=== PATIENT | female | born 1935 | race Caucasian/White ===

== ENCOUNTER 2016-08-11 06:50 | Inpatient (IN) | payer OTHER ==
[~2016-08-11] VITALS: Ht 160 cm; Wt 64.2 kg
[~2016-08-11 06:50] MED LIST: AMARYL2 MG PO; ASPIRIN325 MG PO; BIDIL1 TABLET PO; CALTRATE PLUS1 EACH PO; CENTRUM SILVER1 EAC3 PO; CINNAMON500 MG PO; DIGOX250 MCG PO; DIGOXIN250 MCG PO; DIOVAN80 MG PO; DYAZIDE, MA1 CAPSULE PO; FENOFIBRATE48 MG PO; FENOGLIDE40 MG PO; GLIMEPIRIDE2 MG PO; ISOSORBIDE DINI20 MG PO; JANUVIA100 MG PO; LYRICA150 MG PO; NEXIUM40 MG PO; PREDNISOLONE AC15 ML LEFT EYE; SERTRALINE HCL25 MG PO; SKELAXIN800 MG PO; TORADOL10 MG PO; TRIAMTERENE-HC1 EAC1 PO; TYLENOL REGULA325 MG PO; VITAMIN B-6100 MG PO
[2016-08-11 07:52] LABS: HEMATOCRIT 33.9 % (36.0-46.0); MCH 25.7 PG (29.0-34.0); MCHC 33.3 G/DL (30.0-36.0); MEAN PLAT.VOLUME 9.7 uM^3 (9.5-12.4); PLATELET COUNT 223 K/uL (156-360); RBC DIS.WIDTH-CV 13.2 % (11.8-14.6); RBC DIS.WIDTH-SD 36.9 % (39-53); WHITE BLOOD COUNT 17.2 K/uL (4.1-10.2)
[2016-08-11 08:11] LABS: CHLORIDE 101 mEq/L (99-109); POTASSIUM 5.2 mEq/L (3.7-5.4); SODIUM 132 mEq/L (136-147)
[2016-08-11 08:14] LABS: GLUCOSE 173 mg/dL (70-99)
[2016-08-11 08:15] LABS: ANION GAP 10 MEQ/L (2-14)
[2016-08-11 08:16] LABS: TOTAL BILIRUBIN 0.5 mg/dL (0.0-1.0)
[2016-08-11 08:17] LABS: ALKALINE PHOSPHATASE 40 IU/L (3-129); GFR ESTIMATE (CALCULATED) 51 mL/min/
[2016-08-11 08:19] LABS: UREA NITROGEN (BUN) 13 mg/dL (9-23)
[2016-08-11 08:21] LABS: LIPASE 423 U/L (1.0-51.0)
[2016-08-11 08:39] LABS: ABS NEUTROPHIL COUNT 15.9; BAND NEUTROPHILS 0.9 % (0-8.0); EOSINOPHIL ABS CT 0; INSTRUMENT ABS NEUTROPHIL CT 14.7 K/uL; LYMPHOCYTES 5.2 % (15.0-45.0); SEG.NEUTROPHILS 91.3 % (46.0-76.0)
[2016-08-11] MEDS ORDERED: LYRICA100 MG PO (11:04)
[2016-08-11] MEDS ORDERED: TRULICITY1.5 MG/0.5 SC (11:06)
[2016-08-11] MEDS ORDERED: LEVEMIR FL100 UNIT/1 SC (11:06)
[2016-08-11 13:01] VITALS: BP 142/67
[2016-08-11 13:23] LABS: ABSOLUTE RETICULOCYTE CT. 0.1 M/uL (0.02-0.08); IMM.RETIC FRACTION 10.2 % (3-19); RETIC HGB EQUIVALENT 26.7 (28-36); RETICULOCYTE COUNT 2.1 % (0.5-1.8)
[2016-08-11 14:51] LABS: IRON 19 MCG/DL (35-150)
[2016-08-11 16:10] VITALS: BP 127/71
[2016-08-11 17:15] LABS: FERRITIN 225 NG/ML (10-291)
[2016-08-11 17:24] LABS: POINT-OF-CARE METER ID UU14162508
[2016-08-11 19:27] VITALS: BP 140/65
[2016-08-12 03:41] VITALS: BP 145/64
[2016-08-12 07:23] VITALS: BP 169/73
[2016-08-12 07:57] LABS: EOSINOPHIL (%) 5.1 % (0-5); EOSINOPHIL COUNT 0.6 K/uL (0-0.3); HEMATOCRIT 31.5 % (36.0-46.0); IMMATURE GRANULOCYTE (%) 0.4 % (0.0-0.7); INSTRUMENT ABS NEUTROPHIL CT 7.2 K/uL; LYMPHOCYTE COUNT 2.3 K/uL (1.0-2.8); MCH 25.4 PG (29.0-34.0); MCHC 32.1 G/DL (30.0-36.0); MCV 79.1 FL (83-99); MEAN PLAT.VOLUME 10.6 uM^3 (9.5-12.4); MONOCYTE (%) 7.8 % (3-12); MONOCYTE COUNT 0.9 K/uL (0-0.8); NEUTROPHIL (%) 65.1 % (45-76); NEUTROPHIL COUNT 7.2 K/uL (1.8-6.4); PLATELET COUNT 214 K/uL (156-360); RBC DIS.WIDTH-CV 13.4 % (11.8-14.6); RBC DIS.WIDTH-SD 38.8 % (39-53); RED BLOOD COUNT 3.98 M/uL (3.80-5.20)
[2016-08-12 08:11] LABS: ANION GAP 8 MEQ/L (2-14); CHLORIDE 107 MEQ/L (99-109); GFR ESTIMATE (CALCULATED) > 59 mL/min/; SAMPLE HEMOLYSIS CHECK 0; SAMPLE ICTERIC CHECK 0; SAMPLE LIPEMIA CHECK 0; SODIUM 138 MEQ/L (136-147); UREA NITROGEN (BUN) 11 mg/dL (9-23)
[2016-08-12 08:15] LABS: GLUCOSE 89 mg/dL (70-99); POTASSIUM 3.8 MEQ/L (3.7-5.4)
[2016-08-12 11:37] VITALS: BP 156/70
[2016-08-12 15:19] VITALS: BP 162/74
[2016-08-12 20:31] VITALS: BP 170/68
[2016-08-13 00:33] VITALS: BP 139/61
[2016-08-13 05:04] VITALS: BP 162/66
[2016-08-13 06:28] LABS: HEMATOCRIT 31.4 % (36.0-46.0); MCH 25.8 PG (29.0-34.0); MCHC 33.4 G/DL (30.0-36.0); MCV 77.1 FL (83-99); MEAN PLAT.VOLUME 10.1 uM^3 (9.5-12.4); PLATELET COUNT 231 K/uL (156-360); RBC DIS.WIDTH-SD 36.8 % (39-53); RED BLOOD COUNT 4.07 M/uL (3.80-5.20)
[2016-08-13 06:51] LABS: ANION GAP 12 MEQ/L (2-14); CHLORIDE 104 MEQ/L (99-109); GFR ESTIMATE (CALCULATED) > 59 mL/min/; GLUCOSE 92 mg/dL (70-99); LIPASE 47 U/L (1.0-51.0); POTASSIUM 3.4 MEQ/L (3.7-5.4); SAMPLE HEMOLYSIS CHECK 0; SAMPLE ICTERIC CHECK 0; SAMPLE LIPEMIA CHECK 0; SODIUM 137 MEQ/L (136-147); UREA NITROGEN (BUN) 9 mg/dL (9-23)
[2016-08-13 07:25] VITALS: BP 163/74
[2016-08-13 11:44] VITALS: BP 169/70
[2016-08-13 15:49] VITALS: BP 176/92
[2016-08-13 16:20] LABS: POINT-OF-CARE METER ID UU14162508
[2016-08-14 00:10] VITALS: BP 147/64
[2016-08-14 04:48] LABS: HEMATOCRIT 32.7 % (36.0-46.0); MCH 25.6 PG (29.0-34.0); MCHC 33.9 G/DL (30.0-36.0); MCV 75.5 FL (83-99); MEAN PLAT.VOLUME 10.1 uM^3 (9.5-12.4); PLATELET COUNT 264 K/uL (156-360); RBC DIS.WIDTH-SD 35.7 % (39-53); RED BLOOD COUNT 4.33 M/uL (3.80-5.20); WHITE BLOOD COUNT 10.2 K/uL (4.1-10.2)
[2016-08-14 05:48] LABS: CHLORIDE 104 mEq/L (99-109); POTASSIUM 3.7 mEq/L (3.7-5.4); SODIUM 136 mEq/L (136-147)
[2016-08-14 05:51] LABS: ANION GAP 10 MEQ/L (2-14)
[2016-08-14 05:53] LABS: GFR ESTIMATE (CALCULATED) > 59 mL/min/; GLUCOSE 148 mg/dL (70-99)
[2016-08-14 05:54] LABS: UREA NITROGEN (BUN) 7 mg/dL (9-23)
[2016-08-14 07:21] VITALS: BP 173/62
[2016-08-14] MEDS ORDERED: OMNICEF300 MG PO (12:19)
[2016-08-14 12:31] LABS: POINT-OF-CARE METER ID UU14162508
== END 2016-08-14 13:30 | disposition home or self-care (01) | DRG 438 ==
LOC: EME → EDBD 06:50 → EME 06:50 → EDOF 10:46 → 2EAST 10:46
PROVIDERS: Emergency Medicine; Internal Medicine; Internal Medicine Gastroenterology
DX: K85.90 Acute pancreatitis without necrosis or infection, unspecified (principal); J18.9 Pneumonia, unspecified organism; Y93.01 Activity, walking, marching and hiking; I10 Essential (primary) hypertension; W19.XXXA Unspecified fall, initial encounter; E11.9 Type 2 diabetes mellitus without complications; E78.5 Hyperlipidemia, unspecified; K21.9 Gastro-esophageal reflux disease without esophagitis; R10.32 Left lower quadrant pain; Z79.4 Long term (current) use of insulin; Y92.009 Unspecified place in unspecified non-institutional (private) residence as the place of occurrence of the external cause; E87.1 Hypo-osmolality and hyponatremia; J90 Pleural effusion, not elsewhere classified; D64.9 Anemia, unspecified; D49.0 Neoplasm of unspecified behavior of digestive system; R53.1 Weakness; Z88.2 Allergy status to sulfonamides
CPT/HCPCS: 70450; 71010; 73502; 74177; 76705; 80048; 80053; 81003; 82607; 82728; 82746; 82948; 83540; 83605; 83690; 84466; 85025; 85027; 85045; 87040; 87070; 87205; 87449; 93005; 94799; 97530 GP; 99281; 99284; C9113; J0456; J0696; J1650; J1815; J7030; J7050

== ENCOUNTER 2016-11-11 09:04 | Inpatient (IN) | payer OTHER ==
[~2016-11-11] VITALS: Ht 157.5 cm; Wt 62.4 kg
[~2016-11-11 09:04] MED LIST changes: +LEVEMIR FL100 UNIT/1 SC; +LYRICA100 MG PO; +OMNICEF300 MG PO; +TRULICITY1.5 MG/0.5 SC
[2016-11-11] MEDS ORDERED: ACCUPRIL40 MG PO (10:01)
[2016-11-11] MEDS ORDERED: AMLODIPINE BESY10 MG PO (10:02)
[2016-11-11] MEDS ORDERED: AVODART0.5 MG PO (10:03)
[2016-11-11] MEDS ORDERED: LASIX40 MG PO (10:03)
[2016-11-11 10:05] LABS: HEMATOCRIT 41.9 % (36.0-46.0); MCH 25.4 PG (29.0-34.0); MCHC 32.5 G/DL (30.0-36.0); MCV 78.2 FL (83-99); MEAN PLAT.VOLUME 9.6 uM^3 (9.5-12.4); PLATELET COUNT 245 K/uL (156-360); RBC DIS.WIDTH-CV 14.3 % (11.8-14.6); RBC DIS.WIDTH-SD 39.9 % (39-53); RED BLOOD COUNT 5.36 M/uL (3.80-5.20)
[2016-11-11 10:17] LABS: CHLORIDE 103 mEq/L (99-109); POTASSIUM 4.1 mEq/L (3.7-5.4); SODIUM 140 mEq/L (136-147)
[2016-11-11 10:19] LABS: GLUCOSE 156 mg/dL (70-99)
[2016-11-11 10:21] LABS: ANION GAP 10 MEQ/L (2-14); TOTAL BILIRUBIN 0.5 mg/dL (0.0-1.0)
[2016-11-11 10:23] LABS: ALKALINE PHOSPHATASE 51 IU/L (3-129); GFR ESTIMATE (CALCULATED) > 59 mL/min/
[2016-11-11 10:24] LABS: UREA NITROGEN (BUN) 11 mg/dL (9-23)
[2016-11-11] MEDS ORDERED: MOBIC7.5 MG PO (14:39)
[2016-11-11] MEDS ORDERED: LEVEMIR FL100 UNIT/1 SC (14:39)
[2016-11-11 20:05] LABS: POINT-OF-CARE METER ID UU14100415
[2016-11-11 21:30] VITALS: BP 167/81
[2016-11-12] VITALS (7 sets, daily range): BP systolic 119–173; BP diastolic 62–80
[2016-11-12 06:14] LABS: HEMATOCRIT 32.6 % (36.0-46.0); MCH 26.3 PG (29.0-34.0); MCHC 32.8 G/DL (30.0-36.0); MCV 80.1 FL (83-99); MEAN PLAT.VOLUME 10.4 uM^3 (9.5-12.4); PLATELET COUNT 206 K/uL (156-360); RBC DIS.WIDTH-CV 14.5 % (11.8-14.6)
[2016-11-12 06:16] LABS: RED BLOOD COUNT 4.07 M/uL (3.80-5.20)
[2016-11-12 06:26] LABS: ANION GAP 6 MEQ/L (2-14); CHLORIDE 106 MEQ/L (99-109); GFR ESTIMATE (CALCULATED) 56 mL/min/; POTASSIUM 4.2 MEQ/L (3.7-5.4); SAMPLE HEMOLYSIS CHECK 0; SAMPLE ICTERIC CHECK 0; SAMPLE LIPEMIA CHECK 0; SODIUM 141 MEQ/L (136-147); UREA NITROGEN (BUN) 12 mg/dL (9-23)
[2016-11-12 06:35] LABS: GLUCOSE 74 mg/dL (70-99)
[2016-11-12 08:44] LABS: POINT-OF-CARE METER ID UU13113717
[2016-11-12 17:10] LABS: POINT-OF-CARE METER ID UU14188625
[2016-11-12 21:09] LABS: POINT-OF-CARE METER ID UU13113717
[2016-11-13 06:05] LABS: EOSINOPHIL (%) 5.2 % (0-5); EOSINOPHIL COUNT 0.5 K/uL (0-0.3); HEMATOCRIT 31.9 % (36.0-46.0); IMMATURE GRANULOCYTE (%) 0.3 % (0.0-0.7); LYMPHOCYTE COUNT 2.7 K/uL (1.0-2.8); MCH 26.6 PG (29.0-34.0); MCHC 33.5 G/DL (30.0-36.0); MCV 79.4 FL (83-99); MEAN PLAT.VOLUME 10.3 uM^3 (9.5-12.4); MONOCYTE (%) 8.4 % (3-12); MONOCYTE COUNT 0.8 K/uL (0-0.8); PLATELET COUNT 204 K/uL (156-360); RBC DIS.WIDTH-CV 14.3 % (11.8-14.6); RBC DIS.WIDTH-SD 41.3 % (39-53); RED BLOOD COUNT 4.02 M/uL (3.80-5.20); WHITE BLOOD COUNT 8.9 K/uL (4.1-10.2)
[2016-11-13 06:39] LABS: ANION GAP 8 MEQ/L (2-14); CHLORIDE 106 MEQ/L (99-109); GFR ESTIMATE (CALCULATED) > 59 mL/min/; POTASSIUM 4.1 MEQ/L (3.7-5.4); SAMPLE HEMOLYSIS CHECK 0; SAMPLE ICTERIC CHECK 0; SAMPLE LIPEMIA CHECK 0; SODIUM 140 MEQ/L (136-147); UREA NITROGEN (BUN) 9 mg/dL (9-23)
[2016-11-13 06:47] LABS: GLUCOSE 162 mg/dL (70-99)
[2016-11-13 07:56] VITALS: BP 179/81
[2016-11-13 08:26] LABS: POINT-OF-CARE METER ID UU14188625
[2016-11-13 12:05] VITALS: BP 169/71
[2016-11-13 12:31] LABS: POINT-OF-CARE METER ID UU14188625
[2016-11-13] MEDS ORDERED: CEFTIN500 MG PO (13:15)
[2016-11-13] MEDS ORDERED: FLAGYL500 MG PO (13:15)
== END 2016-11-13 15:36 | disposition home or self-care (01) | DRG 391 ==
LOC: EME 09:04 → EDOF 14:44 → ENRESERV 14:57 → 5SOUTH 21:34 → ENPENDDIS 11-13 → 5SOUTH 11-13 15:36
PROVIDERS: Internal Medicine
DX: K57.92 Diverticulitis of intestine, part unspecified, without perforation or abscess without bleeding (principal); K21.9 Gastro-esophageal reflux disease without esophagitis; J96.01 Acute respiratory failure with hypoxia; K76.0 Fatty (change of) liver, not elsewhere classified; E11.40 Type 2 diabetes mellitus with diabetic neuropathy, unspecified; I10 Essential (primary) hypertension; H66.90 Otitis media, unspecified, unspecified ear; E86.0 Dehydration; D72.829 Elevated white blood cell count, unspecified; J98.11 Atelectasis; E78.5 Hyperlipidemia, unspecified; E11.9 Type 2 diabetes mellitus without complications; Z79.4 Long term (current) use of insulin; Z88.1 Allergy status to other antibiotic agents; Z88.2 Allergy status to sulfonamides; Z85.07 Personal history of malignant neoplasm of pancreas
CPT/HCPCS: 71010; 74177; 80048; 80053; 81003; 82948; 85025; 85027; 87040; 99281; 99285; J0696; J1650; J1815; J1885; J2270; J2405; J2543; J3010; J7030; J7050; J7120; S0030

== ENCOUNTER 2016-12-11 00:30 | Emergency (ER) | payer OTHER ==
[~2016-12-11] VITALS: Ht 160 cm; Wt 64.6 kg
[~2016-12-11 00:30] MED LIST changes: +ACCUPRIL40 MG PO; +AMLODIPINE BESY10 MG PO; +AVODART0.5 MG PO; +CEFTIN500 MG PO; +FLAGYL500 MG PO; +LASIX40 MG PO; +MOBIC7.5 MG PO
[2016-12-11 01:20] LABS: HEMATOCRIT 38.5 % (36.0-46.0); MCH 25.8 PG (29.0-34.0); MCV 78.1 FL (83-99); MEAN PLAT.VOLUME 10.2 uM^3 (9.5-12.4); PLATELET COUNT 208 K/uL (156-360); RBC DIS.WIDTH-SD 39.3 % (39-53); RED BLOOD COUNT 4.93 M/uL (3.80-5.20); WHITE BLOOD COUNT 13.3 K/uL (4.1-10.2)
[2016-12-11 01:27] LABS: CHLORIDE 102 mEq/L (99-109)
[2016-12-11 01:28] LABS: POTASSIUM 3.9 mEq/L (3.7-5.4); SODIUM 139 mEq/L (136-147)
[2016-12-11 01:30] LABS: GLUCOSE 217 mg/dL (70-99)
[2016-12-11 01:31] LABS: ANION GAP 14 MEQ/L (2-14)
[2016-12-11 01:32] LABS: TOTAL BILIRUBIN 0.2 mg/dL (0.0-1.0)
[2016-12-11 01:33] LABS: ALKALINE PHOSPHATASE 67 IU/L (3-129)
[2016-12-11 01:34] LABS: GFR ESTIMATE (CALCULATED) 56 mL/min/
[2016-12-11 01:35] LABS: DIRECT BILIRUBIN 0.1 mg/dL (0.0-0.3); UREA NITROGEN (BUN) 12 mg/dL (9-23)
[2016-12-11 01:36] LABS: ADD MIUA? YES; BILIRUBIN NEGATIVE; BLOOD NEGATIVE; COLOR STRAW ((YELLOW)); GLUCOSE (STRIP) 50; KETONES NEGATIVE; LEUKOCYTES SMALL; NITRITE NEGATIVE; PROTEIN (STRIP) NEGATIVE; SPECIFIC GRAVITY 1.004 (1.000-1.030); UROBILINOGEN 0.2 MG/DL (0.2-1.0)
[2016-12-11 01:37] LABS: LIPASE 57 U/L (1.0-51.0)
[2016-12-11 01:49] LABS: BACTERIA NONE SEEN /HPF; EPITHELIAL CELLS RARE /HPF; MUCUS NONE SEEN /LPF; RED BLOOD CELLS 0-5 /HPF (0-5); UCUL ADDED? YES; WHITE BLOOD CELLS CLUMP RARE /HPF (0-5)
[2016-12-11] MEDS ORDERED: KEFLEX500 MG PO (02:35)
[2016-12-11 02:50] VITALS: BP 162/58
== END 2016-12-11 02:51 | disposition home or self-care (01) ==
LOC: EME → EDBD 00:30 → EME 02:51
PROVIDERS: Emergency Medicine
DX: N39.0 Urinary tract infection, site not specified (principal); I10 Essential (primary) hypertension; E11.9 Type 2 diabetes mellitus without complications; Z79.4 Long term (current) use of insulin; E78.5 Hyperlipidemia, unspecified; K21.9 Gastro-esophageal reflux disease without esophagitis; Z87.19 Personal history of other diseases of the digestive system; Z86.718 Personal history of other venous thrombosis and embolism; Z90.49 Acquired absence of other specified parts of digestive tract
CPT/HCPCS: 74177; 80048; 80076; 81003; 83690; 85027; 87086; 99281; 99285; J2270; J2405; J7030

== ENCOUNTER 2017-04-06 13:15 | Emergency (ER) | payer OTHER ==
[~2017-04-06] VITALS: Ht 157.5 cm
[~2017-04-06 13:15] MED LIST changes: +KEFLEX500 MG PO; +[UNRECOGNIZED DRUG - OTHER] TP
[2017-04-06 15:18] LABS: HEMATOCRIT 33.2 % (36.0-46.0); HEMOGLOBIN 11.1 G/DL (11.9-15.5); MCH 26.6 PG (29.0-34.0); MCHC 33.4 G/DL (30.0-36.0); MCV 79.6 FL (83-99); PLATELET COUNT 309 K/uL (156-360); RBC DIS.WIDTH-CV 12.9 % (11.8-14.6); RBC DIS.WIDTH-SD 37.2 % (39-53); RED BLOOD COUNT 4.17 M/uL (3.80-5.20); WHITE BLOOD COUNT 13.9 K/uL (4.1-10.2)
[2017-04-06 15:22] LABS: ALBUMIN 3.7 g/dL (3.2-4.8)
[2017-04-06 15:23] LABS: CHLORIDE 97 mEq/L (99-109); POTASSIUM 4.1 mEq/L (3.7-5.4); SODIUM 131 mEq/L (136-147)
[2017-04-06 15:25] LABS: GLUCOSE 193 mg/dL (70-99); TOTAL PROTEIN 6.9 g/dL (6.4-8.3)
[2017-04-06 15:27] LABS: TOTAL BILIRUBIN 0.4 mg/dL (0.0-1.0)
[2017-04-06 15:28] LABS: ALKALINE PHOSPHATASE 48 IU/L (3-129)
[2017-04-06 15:29] LABS: CREATININE 0.9 mg/dL (0.6-1.3); GFR ESTIMATE (CALCULATED) > 59 mL/min/
[2017-04-06 15:30] LABS: AST (GOT) 16 IU/L (2-34); UREA NITROGEN (BUN) 9 mg/dL (9-23)
[2017-04-06 15:31] LABS: ALT (GPT) 17 IU/L (3-49)
[2017-04-06 16:55] LABS: CREATINE KINASE 34 IU/L (1-294)
[2017-04-06] MEDS ORDERED: ZITHROMAX Z-PA250 MG PO (18:31)
[2017-04-06] MEDS ORDERED: ULTRAM50 MG PO (18:31)
[2017-04-06 19:13] LABS: APPEARANCE CLEAR ((CLEAR)); BILIRUBIN NEGATIVE; BLOOD NEGATIVE; COLOR YELLOW ((YELLOW)); GLUCOSE (STRIP) >=500; KETONES NEGATIVE; LEUKOCYTES NEGATIVE; NITRITE NEGATIVE; PROTEIN (STRIP) NEGATIVE; SPECIFIC GRAVITY 1.005 (1.000-1.030); UCUL ADDED? NO; UROBILINOGEN 0.2 MG/DL (0.2-1.0)
[2017-04-06 19:50] VITALS: BP 149/76
== END 2017-04-06 19:52 | disposition home or self-care (01) ==
LOC: EME 13:15
PROVIDERS: Physician Assistant
DX: J06.9 Acute upper respiratory infection, unspecified (principal); M54.5 Low back pain; G89.29 Other chronic pain; M61.552 Other ossification of muscle, left thigh; M16.12 Unilateral primary osteoarthritis, left hip; I10 Essential (primary) hypertension; E11.9 Type 2 diabetes mellitus without complications; Z79.4 Long term (current) use of insulin; Z87.442 Personal history of urinary calculi; Z86.718 Personal history of other venous thrombosis and embolism
CPT/HCPCS: 71046; 73552; 74176; 80053; 81003; 82550; 83605; 85027; 87040; 87502; 99281; 99285; J2405; J3010; J7030

== ENCOUNTER 2017-05-03 01:19 | Emergency (ER) | payer OTHER ==
[~2017-05-03] VITALS: Ht 157.5 cm; Wt 62.4 kg
[~2017-05-03 01:19] MED LIST changes: +ULTRAM50 MG PO; +ZITHROMAX Z-PA250 MG PO
[2017-05-03 03:17] VITALS: BP 161/73
== END 2017-05-03 03:17 | disposition home or self-care (01) ==
LOC: EME 01:19
PROC: 0HQ0XZZ Repair Scalp Skin, External Approach (ICD-10-PCS; principal; 2017-05-03)
DX: S01.01XA Laceration without foreign body of scalp, initial encounter (principal); W18.09XA Striking against other object with subsequent fall, initial encounter; Y92.129 Unspecified place in nursing home as the place of occurrence of the external cause; Z79.82 Long term (current) use of aspirin; E11.9 Type 2 diabetes mellitus without complications; Z79.4 Long term (current) use of insulin; F03.90 Unspecified dementia, unspecified severity, without behavioral disturbance, psychotic disturbance, mood disturbance, and anxiety; E78.5 Hyperlipidemia, unspecified; K21.9 Gastro-esophageal reflux disease without esophagitis; I25.10 Atherosclerotic heart disease of native coronary artery without angina pectoris; Z86.718 Personal history of other venous thrombosis and embolism; Z88.2 Allergy status to sulfonamides
CPT/HCPCS: 99281; 99284